=== PATIENT | male | born 1985 | race African-American/Black ===

== ENCOUNTER 2016-12-31 22:10 | Emergency (ER) | payer OTHER, MEDICAID ==
[~2016-12-31] VITALS: Ht 185.4 cm; Wt 90.0 kg
[2016-12-31] MEDS ORDERED: DIPH,PERTUSS(ACELL),TET VAC/PF 0.5 ML IM-VACC ONE ×2 (22:26→22:30)
[2016-12-31] MEDS ORDERED: LIDOCAINE 1%, 20ML ONE (22:26)
[2016-12-31] MEDS ORDERED: LIDOCAINE 1%, 20ML SQ ONE (22:30)
[2016-12-31] MEDS ORDERED: IBUPROFEN 200 MG TABLET ONE (22:57)
[2016-12-31] MEDS ORDERED: IBUPROFEN 200 MG TABLET PO ONE (23:00)
[2017-01-01] MEDS ORDERED: BACITRACIN ZINC OINT 500U/GM, 0.9 GM ONE ×2 (00:29→00:39)
[2017-01-01] MEDS ORDERED: METHOCARBAMOL 750 MG TABLET ONE (00:36)
[2017-01-01 00:54] VITALS: BP 133/87
[2017-01-01] MEDS ORDERED: METHOCARBAMOL 750 MG TABLET PO ONE (01:00)
== END 2017-01-01 00:56 | disposition home or self-care (01) ==
LOC: ED 22:30
DX: S01.01XA Laceration without foreign body of scalp, initial encounter (principal); W01.0XXA Fall on same level from slipping, tripping and stumbling without subsequent striking against object, initial encounter; Y93.89 Activity, other specified; Y92.148 Other place in prison as the place of occurrence of the external cause; Y99.8 Other external cause status
CPT/HCPCS: 13121; 70450; 72125; 90471; 90715; 99285